=== PATIENT | male | born 1970 | race Caucasian/White ===

== ENCOUNTER 2024-09-04 15:14 | Inpatient (IN) | payer MEDICAID ==
[~2024-09-04] VITALS: Ht 165.1 cm; Wt 63.0 kg
[2024-09-04 19:13] VITALS: BP 118/64; TEMP 98.4; O2SAT 98
[2024-09-04] MEDS ORDERED: Z GUARD REMEDY 4 OZ OINT TP PRN (21:00)
[2024-09-04] MEDS ORDERED: ONDANSETRON HCL/PF 4 MG/2 ML VIAL IVP PRN (21:00)
[2024-09-04] MEDS ORDERED: MAG HYDROX/AL HYDROX/SIMETH 30 ML UDC PO PRN (21:00)
[2024-09-04] MEDS ORDERED: INSULIN REGULAR, HUMAN 100 UNIT/ML 10 ML VIAL SQ SCH (22:00)
[2024-09-04] MEDS: TRAMADOL HCL 50 MG TABLET PO PRN (22:45)
[2024-09-04] MEDS: BLOOD SUGAR DIAGNOSTIC 1 EACH STRIP IN SCH ×2 (22:45→23:43)
[2024-09-04] MEDS ORDERED: DEXTROSE 50%-WATER 50 ML DISP.SYRIN IV PRN (23:30)
[2024-09-04] MEDS: INSULIN REGULAR, HUMAN 100 UNIT/ML 3 ML VIAL SQ PRN (23:45)
[2024-09-05] MEDS ORDERED: [UNRECOGNIZED DRUG - OTHER] ONE (00:25)
[2024-09-05] MEDS: CLINDAMYCIN 600 MG in IV NS 0.9% 46 ML IV SCH (00:31)
[2024-09-05] MEDS: VANCOMYCIN 1 GM in IV D5W 250ml IV ONE (04:08)
[2024-09-05] MEDS ORDERED: CEFEPIME 1 GM VIAL ONE (04:24)
[2024-09-05] MEDS: CEFEPIME 1 GM in IV D5W 50 ML IV ONE (05:06)
[2024-09-05 06:23] LABS: BASOPHILS # (AUTO) 0.1 K/uL (0.0-0.2); BASOPHILS % (AUTO) 0.7 % (0.0-2.0); EOSINOPHILS # (AUTO) 0.2 K/uL (0.0-0.7); EOSINOPHILS % (AUTO) 2.1 % (0.0-6.0); HEMATOCRIT 34 % (39-51); HEMOGLOBIN 11.6 g/dL (13.5-17.5); LYMPHOCYTES # (AUTO) 2.4 K/uL (0.8-4.8); LYMPHOCYTES % (AUTO) 22.1 % (20.0-44.0); MEAN CORPUSCULAR HEMOGLOBIN 30 PG (26.0-33.0); MEAN CORPUSCULAR HGB CONC 34 g/dl (31.0-36.0); MEAN CORPUSCULAR VOLUME 88 fL (80-96); MONOCYTES # (AUTO) 0.8 K/uL (0.1-1.30); MONOCYTES % (AUTO) 7.1 % (2.0-12.0); NEUTROPHILS # (AUTO) 7.4 K/uL (1.8-8.9); PLATELET COUNT (AUTO) 550 K/uL (150-450); RED BLOOD CELL COUNT(AUTO) 3.88 MIL/uL (4.5-6.0); RED CELL DISTRIBUTION WIDTH 13.1 % (11.5-15.0); WHITE BLOOD COUNT (AUTO) 10.8 K/uL (4.3-11.0)
[2024-09-05 06:53] LABS: ALBUMIN 2.1 g/dL (3.4-5.0); BILIRUBIN,DIRECT 0.1 mg/dL (0.0-0.2); BILIRUBIN,TOTAL 0.2 mg/dL (0.2-1.0); CALCIUM, SERUM 8.1 mg/dL (8.5-10.1); CREATININE 0.5 mg/dL (0.6-1.3); MAGNESIUM 2.1 mg/dL (1.8-2.4); PHOSPHORUS 3.8 mg/dL (2.5-4.9); POTASSIUM 3.6 mmol/L (3.5-5.1); TOTAL PROTEIN, SERUM 5.9 g/dL (6.4-8.2)
[2024-09-05 07:30] VITALS: BP 137/78; TEMP 98.4; O2SAT 98
[2024-09-05] MEDS ORDERED: CLINDAMYCIN 600 MG in IV NS 0.9% 46 ML IV SCH (08:00)
[2024-09-05] MEDS: VANCOMYCIN 1 GM /D5W 250 ML PB IV ONE (08:13)
[2024-09-05] MEDS: PANTOPRAZOLE 40 MG TABLET.DR PO SCH (08:29)
[2024-09-05] MEDS: CEFTRIAXONE 2 G in IV D5W 100 ML IV SCH (08:56)
[2024-09-05] MEDS: VANCOMYCIN HCL 1.25 GM in IV D5W 250 ML IV SCH (12:22)
[2024-09-05] MEDS: GABAPENTIN 100 MG CAPSULE PO SCH (12:34)
[2024-09-05 14:55] LABS: HIV-1 p24 ANTIGEN NON REACTIVE (NONREACTIVE); HIV-1/2 ANTIBODY NON REACTIVE (NONREACTIVE)
[2024-09-05] MEDS: HYDROCODONE/APAP 10/325MG TABLET PO PRN (15:13)
[2024-09-05 16:00] VITALS: BP 141/74; TEMP 98.2; O2SAT 99
[2024-09-05 20:00] VITALS: BP 139/79; TEMP 97.9; O2SAT 98
[2024-09-06 04:59] LABS: CALCIUM, SERUM 8.5 mg/dL (8.5-10.1); CREATININE 0.5 mg/dL (0.6-1.3); POTASSIUM 4.4 mmol/L (3.5-5.1)
[2024-09-06 08:00] VITALS: BP 155/86; TEMP 97.9; O2SAT 97
[2024-09-06] MEDS: VANCOMYCIN 1 GM in IV D5W 250ml IV SCH (12:08)
[2024-09-06] MEDS: DAKINS QUARTER STRENGTH (0.125%) 480 ML BOTTLE TOP SCH (13:36)
[2024-09-06 20:26] VITALS: BP 145/69; TEMP 98.8; O2SAT 100
[2024-09-06] MEDS: MAGNESIUM HYDROXIDE 30 ML UDC PO PRN (20:32)
[2024-09-07 08:00] VITALS: BP 138/65; TEMP 98.2; O2SAT 98
[2024-09-07 09:10] LABS: CALCIUM, SERUM 9.5 mg/dL (8.5-10.1); CREATININE 0.7 mg/dL (0.6-1.3); POTASSIUM 3.9 mmol/L (3.5-5.1)
[2024-09-07 16:00] VITALS: BP 119/77; TEMP 97.5; O2SAT 97
[2024-09-07 20:21] VITALS: BP 140/73; TEMP 98.2; O2SAT 100
[2024-09-08] MEDS: VANCOMYCIN 750 MG in IV D5W 250 ML IV SCH (03:57)
[2024-09-08 08:00] VITALS: BP 128/77; TEMP 98.3; O2SAT 98
[2024-09-08 16:00] VITALS: BP 128/74; TEMP 98.7; O2SAT 96
[2024-09-08 16:05] LABS: CALCIUM, SERUM 9.4 mg/dL (8.5-10.1); CREATININE 0.7 mg/dL (0.6-1.3); POTASSIUM 4.5 mmol/L (3.5-5.1)
[2024-09-08 20:00] VITALS: BP 141/87; TEMP 99.3; O2SAT 100
[2024-09-08] MEDS: ACETAMINOPHEN 325 MG TABLET PO PRN (20:23)
[2024-09-09 07:00] VITALS: BP 125/75; TEMP 97.7; O2SAT 98
[2024-09-09 08:14] LABS: CREATININE 0.7 mg/dL (0.6-1.3); POTASSIUM 4.2 mmol/L (3.5-5.1)
[2024-09-09] MEDS: DOCUSATE SODIUM 100 MG CAPSULE PO SCH (10:54)
[2024-09-09 16:00] VITALS: BP 114/72; TEMP 98.2; O2SAT 97
[2024-09-09 20:00] VITALS: BP 130/80; TEMP 97.9; O2SAT 97
[2024-09-10] MEDS: VANCOMYCIN 750 MG in IV D5W 250 ML IV SCH (04:02)
[2024-09-10 06:45] LABS: CREATININE 0.7 mg/dL (0.6-1.3)
[2024-09-10 08:00] VITALS: BP 124/84; TEMP 98.6; O2SAT 97
[2024-09-10] MEDS: THERAHONEY GEL 1.5 OZ TUBE TP SCH (10:49)
[2024-09-10 16:00] VITALS: BP 131/75; TEMP 98; O2SAT 98
[2024-09-10 20:00] VITALS: BP 131/70; TEMP 98.6; O2SAT 99
[2024-09-10 20:36] VITALS: BP 131/70; TEMP 98.6; O2SAT 99
[2024-09-11 08:00] VITALS: BP 120/77; TEMP 98.8; O2SAT 98
[2024-09-11 10:40] LABS: CALCIUM, SERUM 8.9 mg/dL (8.5-10.1); CREATININE 0.8 mg/dL (0.6-1.3); POTASSIUM 4.1 mmol/L (3.5-5.1)
[2024-09-11 16:00] VITALS: BP 140/83; TEMP 98.1; O2SAT 99
[2024-09-11 20:25] VITALS: BP 136/79; TEMP 98.4; O2SAT 99
[2024-09-12 08:00] VITALS: BP 124/79; TEMP 97.9; O2SAT 98
[2024-09-12] MEDS: LIDOCAINE 1%-EPI 1:100,000 20 ML VIAL TP ONE (09:51)
[2024-09-12 16:00] VITALS: BP 119/84; TEMP 97.8; O2SAT 98
[2024-09-12 20:00] VITALS: BP 135/85; TEMP 98.2; O2SAT 98
[2024-09-13 06:31] LABS: BASOPHILS # (AUTO) 0.1 K/uL (0.0-0.2); BASOPHILS % (AUTO) 1.8 % (0.0-2.0); EOSINOPHILS # (AUTO) 0.3 K/uL (0.0-0.7); HEMATOCRIT 32 % (39-51); HEMOGLOBIN 11.1 g/dL (13.5-17.5); LYMPHOCYTES # (AUTO) 1.8 K/uL (0.8-4.8); MEAN CORPUSCULAR HEMOGLOBIN 31 PG (26.0-33.0); MEAN CORPUSCULAR HGB CONC 35 g/dl (31.0-36.0); MEAN CORPUSCULAR VOLUME 88 fL (80-96); MONOCYTES # (AUTO) 0.6 K/uL (0.1-1.30); MONOCYTES % (AUTO) 9.6 % (2.0-12.0); NEUTROPHILS # (AUTO) 3.5 K/uL (1.8-8.9); NEUTROPHILS % (AUTO) 55.6 % (43.0-81.0); PLATELET COUNT (AUTO) 582 K/uL (150-450); RED BLOOD CELL COUNT(AUTO) 3.65 MIL/uL (4.5-6.0); RED CELL DISTRIBUTION WIDTH 13.3 % (11.5-15.0); WHITE BLOOD COUNT (AUTO) 6.3 K/uL (4.3-11.0)
[2024-09-13 06:53] LABS: CALCIUM, SERUM 8.8 mg/dL (8.5-10.1); CREATININE 0.7 mg/dL (0.6-1.3); MAGNESIUM 2.1 mg/dL (1.8-2.4); PHOSPHORUS 4.2 mg/dL (2.5-4.9); POTASSIUM 3.8 mmol/L (3.5-5.1)
[2024-09-13 07:30] VITALS: BP 116/79; TEMP 98.6; O2SAT 98
[2024-09-13 08:00] VITALS: BP 116/79; TEMP 98.6; O2SAT 98
[2024-09-13] MEDS ORDERED: DOCU100C36 PO (13:55)
[2024-09-13] MEDS ORDERED: COLL30OI TP (13:55)
[2024-09-13] MEDS ORDERED: GABA100C PO (13:55)
[2024-09-13] MEDS ORDERED: LINE600T13 PO (13:55)
[2024-09-13] MEDS ORDERED: METF-440 PO (13:55)
[2024-09-13 16:11] VITALS: BP 130/85; TEMP 98.2; O2SAT 99
== END 2024-09-13 20:30 | disposition home or self-care (01) | DRG 364 ==
LOC: MED 18:38
PROVIDERS: ADMIT Nurse Practitioner Family; ATTEND Student in an Organized Health Care Education/Training Program
PROC: 0KB60ZZ Excision of Left Shoulder Muscle, Open Approach (ICD-10-PCS; principal; 2024-09-06)
PROC: 0KB60ZZ Excision of Left Shoulder Muscle, Open Approach (ICD-10-PCS; 2024-09-12)
DX: L02.414 Cutaneous abscess of left upper limb (principal); E11.42 Type 2 diabetes mellitus with diabetic polyneuropathy; E11.621 Type 2 diabetes mellitus with foot ulcer; L97.519 Non-pressure chronic ulcer of other part of right foot with unspecified severity; E11.622 Type 2 diabetes mellitus with other skin ulcer; B95.61 Methicillin susceptible Staphylococcus aureus infection as the cause of diseases classified elsewhere; L03.114 Cellulitis of left upper limb; E11.65 Type 2 diabetes mellitus with hyperglycemia; E78.5 Hyperlipidemia, unspecified; L60.3 Nail dystrophy; I10 Essential (primary) hypertension; Y99.0 Civilian activity done for income or pay; X58.XXXA Exposure to other specified factors, initial encounter; L84 Corns and callosities; K59.00 Constipation, unspecified
CPT/HCPCS: 36415; 80048-TC; 80076-TC; 80202-TC; 82962-TC; 83735-TC; 84100-TC; 85025-TC; 86803; 87040-TC; 87806; A4217; A4223; A6253; A6403; G0378; J0692; J0696; J1815; J3370; J3371; J3490; J7030; J7050; J7060